=== PATIENT | female | born 1985 | race African-American/Black ===

== ENCOUNTER → 2016-10-10 | Outpatient (REF) | payer OTHER | LOC: M SFHCLERA 17:18 | PROVIDERS: ATTEND Nurse Practitioner Family | DX: R30.0 Dysuria (principal) ==

== ENCOUNTER → 2017-06-29 | Outpatient (REF) | payer OTHER ==
[2017-06-29 18:21] LABS: CHLAMYDIA DNA AMPLIFICATION NEGATIVE (NEGATIVE); GC DNA AMPLIFICATION NEGATIVE (NEGATIVE)
== END ==
LOC: M SFHCLERA 09:46
DX: R10.2 Pelvic and perineal pain (principal)

== ENCOUNTER 2020-01-22 19:15 | Outpatient (CLI) | payer OTHER ==
[~2020-01-22] VITALS: Ht 162.6 cm; Wt 95.1 kg
[2020-01-22 19:46] VITALS: BP 138/80
[2020-01-22] MEDS ORDERED: PRENTAB9 PO (20:00)
--- NOTE | 2020-01-22 20:46 | IPNPDOC ---
Text Note Date of Service The patient was seen on 01/22/20. NOTE S: C/o ctx for weeks. Today having pressure. +FM. No LOF. No headaches or visual change or RUQ pain. O: VSS ABD: NT, gravid SVE: FT/thick/-3 FHT: cat 1, 140s, reactive, no decels, 1 ctx in 30min A/P: No evidence of labor. Fetus reassuring. Patient given labor and SROM precautions and kick counts. VS,Fishbone, I+O VS, Fishbone, I+O Vital Signs Date Time Temp Pulse Resp B/P (MAP) Pulse Ox O2 Delivery O2 Flow Rate FiO2 01/22/20 19:46 98.8 111 16 138/80 (99) Leila Nettles MD Jan 22, 2020 20:46
== END 2020-01-22 20:39 | disposition home or self-care (01) ==
LOC: M LDO 19:15
PROVIDERS: ATTEND Obstetrics & Gynecology
DX: O47.1 False labor at or after 37 completed weeks of gestation (principal); Z3A.39 39 weeks gestation of pregnancy
CPT/HCPCS: 59025; G0378; G0463

== ENCOUNTER 2020-01-30 09:59 | Inpatient (IN) | payer OTHER ==
[2020-01-30] VITALS (13 sets, daily range): BP systolic 104–136; BP diastolic 57–85
[~2020-01-30] VITALS: Ht 162.6 cm; Wt 94.4 kg
[~2020-01-30 09:59] MED LIST: PRENTAB9 PO
[2020-01-30] MEDS ORDERED: LR 1,000 ML IV SCH (12:54)
[2020-01-30] MEDS ORDERED: OXYTOCIN DRIP 30 UNITS in IV 1 EA IV SCH ×2 (13:00→22:31)
--- NOTE | 2020-01-30 13:18 | HPEPDOC ---
Obstetrical History & Physical General Date of Admission Jan 30, 2020 at 09:59 History of Present Illness S: Claudia is a 35yo at 41+1wks, EDC of [id number], who is being admit alfie for IOL d/t post dates. She reports +FM and some intermittent contractions; denies LOF/VB. She denies any concerns today. Her spouse, Alec, is at the bedside. complicated by obesity (BMI of 32) Blood Type is O Positive GBS Negative OB History: x2 (2005 and 2013), pelvis tested to 6lbs Medical Hx: obesity [employer] Hx: CT + 2004; Pap ASCUS (HPV -) Surg Hx: WTE Chief Complaint: Induction of labor Information Provided By: Patient Age: 35 : 3 Term: 2 Pre-term: 0 Abortions: 0 Livin Care Care: Good Care Dating Final EDC: Jan 22, 2020 Final EDC for Daily Update: Jan 22, 2020 Final EDC by: LMP Antepartum Course Diagnos(e)s Obesity Height (inches): 64 Pre- weight (lbs.): 189 Admission Weight (lbs.): 208 Change in Weight (lbs.): 19 Past Medical History Past Obstetrical History : Past Obstetrical History: Multigravida Past Medical History Medical History Obesity Surgical History: [place] teeth Family History Significant Family History: No pertinent family hx Family History Mother: HTN, diabetes Social History Marital Status: Family situation: Spouse/partner home Psychosocial History: No pertinent psych hx * Smoker: non-smoker Alcohol: Denies Imunizations Tdap status: current Allergies Coded Allergies: No Known Allergies (Unverified , 01/22/20) Medications Scheduled No.137/Iron/Folic Acd ( Vitamin Tablet) 1 Each Tablet, 1 TAB PO DAILY Physical Examination Physical Examination GENERAL: Alert and oriented times three. ABDOMEN: Gravid and non-tender to touch. FETUS: Is vertex (VTX) by sterile vaginal examination (SVE). EFW 3000g HEART RATE: Regular rate and rhythm. LUNGS: observed normal, nonlabored breathing EXTREMITIES: No edema. Reflexes 2+ Vital Signs/I&O O: VSS, afebrile, normotensive FHR: 140s, moderate variaiblity, + accels; 1x variable noted when pt lying on her back during my exam; resolved with repositioning CTX: occasional VE: 50/-3, intact Laboratory Data 24H LABS Laboratory Tests 2 01/30/20 10:04: Serology Scanned Report Hepatitis B Testing Pertinent Laboratoy Data Blood Type: O+ RBC Antibody Screen: Negative HIV: Negative Hepatitis B: Negative Rapid Plasma Reagin: Nonreactive Rubella: Immune Varicella: Immune Chlamydia/Gonorrhea: Negative Group B Streptococcus: Negative Cystic Fibrosis: Negative Glucose Tolerance Test: 99 Anatomy Ultrasound Placenta Location: Anterior Normal Anatomy: Yes Placenta Previa: No Vaginal Examination Presentation: Cephalic presentation Tocometer Contractions: Yes Frequency: irregular Assessment/Plan Assessment A: Claudia is a 35yo at 41+1wks being admitted to LND for post dates induction. She is GBS Negative, Blood Type O Positive. Category I FHT. Plan P: Admit to LND, consent for labor, delivery, pain control options, resusc itative interventions, operative delivery. IV start, admission labs drawn Start IOL with pitocin per low dose protocol CEFM x2 close maternal/ monitoring reassess 4 hours after pitocin started or sooner PRN Consult with OB if indicate anticipate KIERAN KENYON CNM Jan 30, 2020 13:18
[2020-01-30 14:27] LABS: BASO % 0.3 % (0.0-1.0); EOS % 0.1 % (0.0-3.0); HEMATOCRIT 37.6 % (36.0-47.0); HEMOGLOBIN 12.9 g/dl (12.0-15.5); LYMPH # 2.1 10^3/uL (1.5-5.0); LYMPH % 26.9 % (24.0-44.0); MEAN CORPUSCULAR HEMOGLOBIN 30.9 pg (27.0-33.0); MEAN CORPUSCULAR HGB CONC 34.3 g/dl (32.0-36.5); MONO # 0.6 10^3/uL (0.0-0.8); MONO % 7.8 % (0.0-5.0); NEUTROPHILS # 5.1 10^3/uL (1.5-8.5); NEUTROPHILS % 64.6 % (36.0-66.0); PLATELET COUNT, AUTOMATED 181 10^3/uL (150-450); RED BLOOD COUNT 4.18 10^6/uL (4.00-5.40)
[2020-01-30] MEDS ORDERED: FENTANYL 2MCG/ML ROPIVACAINE 0.2% IN 0.9% NACL 100ML IVBAG As Ordered ONE (17:37)
[2020-01-30] MEDS ORDERED: LACTATED RINGER'S 1000 ML IV PRN (18:04)
[2020-01-30] MEDS ORDERED: FENTANYL/ROPIVACAINE/NACL BAG 100 ML EPIDURAL SCH (18:04)
[2020-01-30] MEDS ORDERED: NALOXONE INJ 0.4MG/1ML VIAL (J2310 PER 1MG) IV PRN (18:04)
[2020-01-30] MEDS ORDERED: EPIDURAL/PCA KEYS XX PRN (18:04)
[2020-01-30] MEDS ORDERED: ONDANSETRON 4MG/2ML VIAL IV PRN ×2 (18:04→22:45)
[2020-01-30] MEDS ORDERED: EPIDURAL COMMENT XX SCH (18:04)
[2020-01-30] MEDS ORDERED: REFRIGERATOR IV KEYS XX PRN (18:04)
[2020-01-30] MEDS ORDERED: ePHEDrine SULFATE 25 MG/5 ML(5MG/ML) SYRINGE IV PRN (18:04)
[2020-01-30] MEDS ORDERED: diphenhydrAMINE 50MG/ML VIAL (J1200) IV PRN (18:04)
--- NOTE | 2020-01-30 19:08 | IPNPDOC ---
Text Note Date of Service The patient was seen on 01/30/20. NOTE S: Patient comfortable. O: VSS and WNL SVE: 6/90/0 AROM clear FHT: Cat 1, 150s, reactive, no decels, ctx q4-5min w/ pit at 2mUn A/P: Fetus reassuring. Continue to increase pitocin for IOL for PD. Expect VS,Fishbone, I+O VS, Fishbone, I+O Laboratory Tests 01/30/20 14:12 Leila Nettles MD Jan 30, 2020 19:08
--- NOTE | 2020-01-30 22:37 | DNPDOC ---
[facility] Delivery Note Delivery Note DATE OF DELIVERY: 01/30/2020 PREDELIVERY DIAGNOSIS: 41-1 /7 weeks' gestation. POST DELIVERY DIAGNOSIS: Delivered. PROCEDURE: Spontaneous vaginal delivery. MACHINIST TOOL AND DIE: Dr. Leila Nettles ANESTHESIA: Epidural. ESTIMATED BLOOD LOSS: 100mL. FINDINGS: 6pound 10ounce 3000gm boy infant, Score 9/9, nuchal cord times 1. AROM 1854. DELIVERY SUMMARY: Patient was complete and pushing upon my arrival. Spontaneous vaginal delivery of OP head over intact perineum. Nose and mouth were bulb suction. Nuchal cord was noted and reduced. Shoulders and then body was easily delivered without problems at 2145. Baby was handed on mother's abdomen. Pitocin was bolused. Cord was clamped x2 and cut when pulsation stopped. Cord blood was obtained. Placenta was delivered spontaneously and intact with a 3 vessel cord at 2149. Perineum and vagina was inspected and found to have no lacerations. Repair was not needed. Lap, instrument, and needle count was correct. Mom and baby were bonding. Leila Nettles MD Jan 30, 2020 22:37
[2020-01-30] MEDS ORDERED: MOM 30ML SUSPENSION UDC PO PRN (22:45)
[2020-01-30] MEDS ORDERED: RHOGAM 300 MCG (1500 IU) INJ (J2790) IM SCH (22:45)
[2020-01-30] MEDS ORDERED: MEASLES,MUMPS,RUBELLA VACCINE INJ (MMR-II) (90707) SC SCH (22:45)
[2020-01-30] MEDS ORDERED: CALCIUM CARBONATE 500 MG CHEW U/D PO PRN (22:45)
[2020-01-30] MEDS ORDERED: METHYLERGONOVINE MALEATE 0.2 MG TAB PO PRN (22:45)
[2020-01-30] MEDS ORDERED: DIBUCAINE 1% OINTMENT 30GM TOP PRN (22:45)
[2020-01-30] MEDS ORDERED: SIMETHICONE 80 MG CHEW TAB PO PRN (22:45)
[2020-01-30] MEDS ORDERED: diphenhydrAMINE 25MG CAP PO PRN (22:45)
[2020-01-31] MEDS: IBUPROFEN 800 MG TAB PO PRN ×3 (00:34→22:59)
[2020-01-31 01:00] VITALS: BP 133/82
[2020-01-31] MEDS: ACETAMINOPHEN 500 MG TAB PO PRN ×2 (05:12→15:47)
[2020-01-31 06:00] VITALS: BP 123/60
--- NOTE | 2020-01-31 07:25 | IPNPDOC ---
Progress Note Date of Service: Jan 31, 2020 Day#: 1 Progress Note SUBJECT: Patient is a 35-year-old 3 now Para 3 status post uncomplicated spontaneous vaginal delivery without laceration, doing well day # 1. She has been ambulating, voiding spontaneously without issue and tolerating regular diet. Breast feeding without issue. Reports lochia is like a normal period. Patient is ambulating well. Reports some cramping with . Has no pain. OBJECTIVE: VITAL SIGNS: Within normal limits, afebrile. GENERAL: No acute distress HEENT: MMM BREAST: Nontender, no erythema CARDIOVASCULAR EXAMINATION: RRR RESPIRATORY EXAMINATION: Bilaterally clear ABDOMINAL EXAMINATION: Soft, appropriate tenderness, nondistended, fundus -2 PERINEUM: Intact, minimal lochia EXTREMITIES: no edema, nontender ASSESSMENT: Patient is a 35-year-old 3 now Para 3 status post uncomplicated spontaneous vaginal delivery without laceration, doing well pos tpartum day # 1. Vitals within normal limits, afebrile, hemodynamically stable with no evidence of infection. PLAN: 1. Continue care. 2. Tylenol and Motrin for pain. 3. Encourage breast feeding and ambulation. VS, I&O, 24H, Fishbone Vital Signs/I&O Vital Signs Date Time Temp Pulse Resp B/P (MAP) Pulse Ox O2 Delivery O2 Flow Rate FiO2 01/30/20 22:02 97.3 101 17 122/66 (84) Laboratory Data 24H LABS Laboratory Tests 2 01/30/20 10:04: Serology Scanned Report Hepatitis B Testing 01/30/20 14:12: Immature Granulocyte % (Auto) 0.3, Neutrophils (%) (Auto) 64.6, Lymphocytes (%) (Auto) 26.9, Monocytes (%) (Auto) 7.8H, Eosinophils (%) (Auto) 0.1, Basophils (%) (Auto) 0.3, Neutrophils # (Auto) 5.1, Lymphocytes # (Auto) 2.1, Monocytes # (Auto) 0.6, Eosinophils # (Auto) 0.0, Basophils # (Auto) 0.0, Nucleated Red Blood Cells % (auto) 0.0, Syphilis Serology NONREACTIVE CBC/BMP Laboratory Tests 01/30/20 14:12 Leila Nettles MD Jan 30, 2020 22:39
[2020-01-31] MEDS: PRENATAL VITAMINS CHEWABLE TABLET PO SCH (08:19)
[2020-01-31] MEDS: DOCUSATE SODIUM 100 MG CAP PO SCH ×2 (08:19→20:04)
[2020-01-31 18:26] VITALS: BP 123/82
[2020-02-01 06:00] VITALS: BP 119/76
[2020-02-01] MEDS: DOCUSATE SODIUM 100 MG CAP PO SCH (09:57)
[2020-02-01] MEDS: IBUPROFEN 800 MG TAB PO PRN (09:57)
[2020-02-01] MEDS: PRENATAL VITAMINS CHEWABLE TABLET PO SCH (09:57)
[2020-02-01 10:00] VITALS: BP 119/76
--- NOTE | 2020-02-06 12:51 | IPN ---
DATE: 01/31/2020 Patient and requested circumcision of their male . After discussing risks and benefits of circumcision, the medical and nonmedical indications, the penile block, and aftercare, expressed understanding of penile gab, aftercare, and bleeding, signed the consent form. All questions were answered. A 20-minute discussion. We await the clearance by the correspondence representative. ANETTE
== END 2020-02-01 11:50 | disposition home or self-care (01) | DRG 807 ==
LOC: M LDI 09:59 → M OBS 01-31 00:05
PROVIDERS: ADMIT Registered Nurse Maternal Newborn; ATTEND Obstetrics & Gynecology
PROC: 10E0XZZ Delivery of Products of Conception, External Approach (ICD-10-PCS; principal; 2020-01-30)
PROC: 3E033VJ Introduction of Other Hormone into Peripheral Vein, Percutaneous Approach (ICD-10-PCS; 2020-01-30)
PROC: 10907ZC Drainage of Amniotic Fluid, Therapeutic from Products of Conception, Via Natural or Artificial Opening (ICD-10-PCS; 2020-01-30)
DX: O48.0 Post-term pregnancy (principal); Z37.0 Single live birth; Z3A.41 41 weeks gestation of pregnancy; O99.214 Obesity complicating childbirth; E66.9 Obesity, unspecified

== ENCOUNTER 2021-08-04 17:42 | Emergency (ER) | payer OTHER ==
[~2021-08-04] VITALS: Ht 162.6 cm; Wt 84.5 kg
[2021-08-04 17:42] VITALS: BP 137/75
== END 2021-08-04 22:12 | disposition left against medical advice (07) ==
LOC: M ED 17:42
DX: Z53.29 Procedure and treatment not carried out because of patient's decision for other reasons (principal)